=== PATIENT | female | born 1985 | race Caucasian/White ===

== ENCOUNTER 2019-05-07 13:21 | Emergency (ER) | payer OTHER ==
[~2019-05-07] VITALS: Ht 165.1 cm; Wt 66.7 kg
[2019-05-07] MEDS ORDERED: TOPIRAMATE100 MG PO (13:40)
[2019-05-07] MEDS ORDERED: ONDANSETRON ODT8 MG PO (17:19)
[2019-05-07] MEDS ORDERED: NORCO 7.5-3251 EACH PO (17:19)
== END 2019-05-07 17:41 | disposition home or self-care (01) ==
LOC: ED 13:21
DX: N20.1 Calculus of ureter (principal); F17.200 Nicotine dependence, unspecified, uncomplicated; Z90.49 Acquired absence of other specified parts of digestive tract; Z79.899 Other long term (current) drug therapy
CPT/HCPCS: 74176; 76830; 76856; 80053; 81001; 84703; 85025; 96361; 96374; 96375; 96376; 99284-25; J1170; J1885; J2405; J7030

== ENCOUNTER 2019-11-28 23:57 | Observation (INO) | payer OTHER ==
[~2019-11-28] VITALS: Ht 165.1 cm; Wt 70.1 kg
[~2019-11-28 23:57] MED LIST: NORCO 7.5-3251 EACH PO; ONDANSETRON ODT8 MG PO; TOPIRAMATE100 MG PO
--- OUTSIDE RECORDS SUMMARY | 2019-11-29 | XMS ---
PreManage Notification: GOYO JOINER Security Adon Events No recent Security Events currently on file CRITERIA MET - PRICILLAP CARE PROVIDERS Hugh [facility]LLI[facility] Internal Medicine Current PHONE: Unknown CHADD ELLIOTT Primary Care Current PHONE: [phone] [place] has no Care Guidelines for this patient. Uziel VISIT COUNT (12 MO.) 2 KYLEIGH Aguilar TOTAL 2 NOTE: Visits indicate total known visits. ED/UCC VISIT TRACKING (12 MO.) 11/28/2019 23:57 KYLEIGH Aguilar OR TYPE: Emergency COMPLAINT: - ABDOMINAL PAIN 05/07/2019 13:22 KYLEIGH Aguilar OR TYPE: Emergency COMPLAINT: - POSSIBLE OVARIAN CYST DIAGNOSES: - Acquired absence of other specified parts of digestive tract - Calculus of ureter - Lower abdominal pain, unspecified - Other fci (current) drug therapy - Nicotine dependence, unspecified, uncomplicated INPATIENT VISIT TRACKING (12 MO.) No inpatient visits to display in this time frame [email or web address]
[2019-11-29] MEDS ORDERED: ULTRAM50 MG PO (00:21)
[2019-11-29] MEDS ORDERED: MOTRIN IB200 MG PO (13:48)
[2019-11-29] MEDS ORDERED: NORCO 7.5-3251 EACH PO (13:48)
--- NOTE | 2019-11-29 14:14 | HP ---
[facility] [address] [place], [place] [address] Signed ADMISSION DATE: 11/28/2019 REASON FOR ADMISSION: This 34-year-old white woman is unemployed due to "anxiety." She lives in [place] with "the father of my children." She presented to the emergency room at approximately midnight last night, having had pain beginning earlier in the day, vaguely related to the right lower abdomen. Previous to this in the past week or so, she had not been feeling well and thought she may have had the flu. She had no cough or rhinorrhea, just vague sense of unwellness. She was taking Tylenol for those symptoms. Evaluation by Dr. Anderson in the emergency room included findings of right lower abdominal tenderness and elevated white count of 22,000. A CT scan of the abdomen was performed confirming appendicitis. No sign of abscess or perforation. She is admitted for further evaluation and care. PAST MEDICAL HISTORY: Significant for tubal ligation. She has a history of ovarian cyst as well. She has also had laparoscopic cholecystectomy in [place], [place] a number of years ago. She does suffer episodic diarrhea likely related to that. MEDICATIONS: She does take home medication of tramadol (Ultram) 50 mg p.o. t.i.d. as needed for back pain and topiramate 100 mg daily. SOCIAL HISTORY: She lives in [place] with a man. She has had children. She does not work. She has anxiety. REVIEW OF SYSTEMS: She denies any shortness of breath or chest pain. Does feel somewhat thirsty. Abdominal pain is restricted to the right lower abdomen mostly at this time. She has no problems of extremities. She does have episodic diarrhea (likely related to cholecystectomy history). PHYSICAL EXAMINATION: GENERAL: Pleasant white woman, who does not look systemically toxic. VITAL SIGNS: Temperature is 98.3, pulse 77, respirations 16, and blood pressure 97/62. She has multiple facial piercings, variably dyed hair both dark and blonde. HEENT: Trachea is midline. She has no hoarseness. Mucous membranes are quite dry. CHEST: Clear. Electronically Signed By: DEVORA HAGEN MD 11/29/19 1414 PATIENT NAME: GOYO JOINER HISTORY AND PHYSICAL DATE OF : 85 REPORT #: [id number] PHYSICIAN: DEVORA HAGEN MD PCP: JUDY ARREAGA DO REPORT IS CONFIDENTIAL AND NOT TO BE RELEASED WITHOUT AUTHORIZATION [facility] [address] [place], [place] [address] Signed HEART: Regular without murmur. ABDOMEN: Somewhat obese, but nondistended. Rovsing sign is positive. There is tenderness at McBurney point. There were no tenderness elsewhere. EXTREMITIES: Show no clubbing, cyanosis, or edema. Sequential compression device stockings are in place. LABORATORY STUDIES: Show white count of 22.2, hematocrit 44.4, and platelets 217,000. Chem profile with potassium of 3.2, bicarb 18, and glucose 113. Liver enzymes normal. Globulin 3.6. Amylase 16. Beta-hCG is negative. IMAGING DATA: CT scan was reviewed in detail, quite obviously particularly in coronal view, has an obvious distended appendix, appears to have fecaliths within it. Other intraabdominal organs are normal. Interpretation included a periappendiceal stranding without free air or abscess or perforation. ASSESSMENT: The patient has clinical and radiographic evidence of acute nonperforated appendicitis. Discussed with the pathophysiology of this problem. PLAN: I would recommend appendectomy preferred by laparoscopic approach. The risks of bleeding, infection, need for open procedure and other unforeseen complications were reviewed in detail. She needs additional fluid resuscitation at this time. Medications of thus far included cefoxitin, Pepcid, and pain medication. We will plan to do this today once fully fluid resuscitated. MD ELIN Mathis/MODL /[id number] cc: DO Eduardo Wynn MD Electronically Signed By: DEVORA HAGEN MD 11/29/19 1414 PATIENT NAME: GOYO JOINER HISTORY AND PHYSICAL DATE OF : [birth year] REPORT #: [id number] PHYSICIAN: DEVORA HAGEN MD PCP: JUDY ARREAGA DO REPORT IS CONFIDENTIAL AND NOT TO BE RELEASED WITHOUT AUTHORIZATION [facility] [address] [facility] [place] [address] Signed Copies: JUDY ARREAGA SHELDON MD ~ Electronically Signed By: DEVORA HAGEN MD 11/29/19 1414 PATIENT NAME: GOYO JOINER HISTORY AND PHYSICAL DATE OF : 85 REPORT #: [id number] PHYSICIAN: DEVORA HAGEN MD PCP: JUDY ARREAGA DO REPORT IS CONFIDENTIAL AND NOT TO BE RELEASED WITHOUT AUTHORIZATION
--- NOTE | 2019-11-30 08:44 | OR ---
[facility] [address] [place], [place] [address] Signed DATE OF OPERATION: 11/29/2019 SURGEON: Devora Hagen MD PREOPERATIVE DIAGNOSIS: Acute appendicitis. POSTOPERATIVE DIAGNOSIS: Gangrenous nonperforated appendicitis. PROCEDURE: Laparoscopic appendectomy. ANESTHESIA: General endotracheal; John Ratna, [employer], and local 10 mL of 0.25% Marcaine with epinephrine. INDICATION: This 34-year-old white woman presented to the emergency room at approximately midnight with right lower abdominal pain. She had rather significant right-sided abdominal pain starting at 6 p.m. yesterday, which progressed to her presentation. Upon review, she has had vague feelings of abdominal discomfort and unwellness over the past few days leading up to her right-sided abdominal pain. A CT scan was performed, which showed clear evidence of appendicitis with no sign of abscess particularly. She is known to have an elevated white count, bicarb of 18. She has undergone fluid resuscitation, intravenous antibiotic administration and now ready to undergo appendectomy preferred by laparoscopic approach. The risks of bleeding, infection, need for other indicated procedures and so forth were all reviewed with her. She understands and wished to proceed. FINDINGS: There is some purulent material within the right pericolic gutter as well as the pelvis. Her adnexal structures were normal except for the uterus, which had a few small fibroids. The appendix was indeed markedly inflamed, indeed gangrenous, but without sign of perforation or formed abscess. The liver had fatty infiltration. Appendectomy was performed without problem. DESCRIPTION OF PROCEDURE: The patient was brought to the operating room, given a general endotracheal anesthetic. Preoperative antibiotic, cefoxitin had been given. After satisfactory general Electronically Signed By: DEVORA HAGEN MD 11/30/19 0844 PATIENT NAME: GOYO JOINER OPERATIVE REPORT DATE OF : [birth year] REPORT #: [id number] PHYSICIAN: DEVORA HAGEN MD PCP: JUDY ARREAGA DO REPORT IS CONFIDENTIAL AND NOT TO BE RELEASED WITHOUT AUTHORIZATION [facility] [address] [place], [place] [address] Signed endotracheal anesthesia with COVID-19 precautions (use of a glide scope) the abdomen was then prepared with a chlorhexidine solution and draped sterilely. The left arm was kept at the side. The infraumbilical incision was made and using an open Ran cannula technique pneumoperitoneum was achieved to a level of 14 mmHg of carbon dioxide gas. Intraabdominal inspection showed no sign of ascites or carcinomatosis. There was some purulent material in the right pericolic gutter as well as the pelvis. The liver had fatty infiltration, but no sign of cirrhotic changes. An additional 12 mm epigastric port was placed and a camera placed to that site. Single hand manipulation identified well the stiff and straight appearing appendix, which was markedly inflamed and probably with early gangrenous changes, but there was no sign of formed abscess or perforation proper. A right lower quadrant 5 mm port was placed with two-hand manipulation. The appendix was elevated and a window created between the appendix and the cecum. An Endo STEPHANIE stapling device was used to transect the appendix flushed with the cecum. The mesoappendix was then secured with an Endo STEPHANIE stapling device as well. Appendix was placed in an endobag and extracted through the infraumbilical port site, opened on the back table and found to show appendicitis as expected. Irrigation was undertaken in the pelvis in the right pericolic gutter, The staple line was evaluated and found to be generally hemostatic. Minimal electrocautery was applied to it. Trocars were then removed under direct visualization showing no sign of bleeding. The infraumbilical fascial incision was reapproximated with interrupted 0 Vicryl suture. 10 mL of 0.25% Marcaine with epinephrine was injected locally. Irrigation of the subcutaneous space was undertaken. The skin closed with interrupted 3-0 Vicryl. Steri-Strips were applied. The patient was ultimately extubated and transferred to the recovery room in good condition having suffered no complication. Sponge, needle, and instrument counts were reported as correct x3. Devora Hagen MD /MODL /[id number] cc: DO Eduardo Wynn MD Electronically Signed By: DEVORA HAGEN MD 11/30/19 0844 PATIENT NAME: GOYO JOINER OPERATIVE REPORT DATE OF : [birth year] REPORT #: [id number] PHYSICIAN: DEVORA HAGEN MD PCP: JUDY ARREAGA DO REPORT IS CONFIDENTIAL AND NOT TO BE RELEASED WITHOUT AUTHORIZATION [address] [address] Signed Copies: JUDY ARREAGA SHELDON MD ~ Electronically Signed By: DEVORA HAGEN MD 11/30/19 0844 PATIENT NAME: GOYO JOINER OPERATIVE REPORT DATE OF : [birth year] REPORT #: [id number] PHYSICIAN: DEVORA HAGEN MD PCP: JUDY ARREAGA DO REPORT IS CONFIDENTIAL AND NOT TO BE RELEASED WITHOUT AUTHORIZATION
--- NOTE | 2019-11-30 11:10 | PATH ---
[facility] [address] [place], [place] [address] Signed SPECIMEN(S): A APPENDIX SPECIMEN SOURCE: A. APPENDIX CLINICAL HISTORY: Evidence of non-perforated appendicitis. FINAL PATHOLOGIC DIAGNOSIS: Appendix, appendectomy: - Acute appendicitis with periappendicitis. NAL:caw:[id number] MICROSCOPIC EXAMINATION: Histologic sections of all submitted blocks are examined by light microscopy. These findings, together with the gross examination, support the pathologic diagnosis. GROSS DESCRIPTION: The specimen, labeled "SZ, appendix," is received in formalin and consists of Specimen: Appendix with mesoappendix. Dimensions: 6.5 x 1.4 cm. Serosa: Dull rodriguez with a nice exudate. Perforation: Not grossly identified. Inking: Staple line is inked black. Mucosa: Dark red. Fecalith: Not grossly identified. Additional: None. Felled Seam Operator sections are submitted in cassette (A1). SS (under the direct supervision of a pathologist) The Gross Description was prepared using a voice recognition system. The report was reviewed for accuracy; however, sound-alike word errors, addition and/or deletions may occur. If there is any question about this report, please contact Client Services. PERFORMING LABORATORY: The technical component was performed by [employer], [address] [place] [id number] (Pig Conveyor Operator: Genevieve Cowart MD; CLIA# [id number]). [facility] [address] [address] (CLIA# [id number]). PATIENT NAME: GOYO JOINER PATHOLOGY DATE OF : 85 REPORT #: [id number] PHYSICIAN: RAMIRO PATHOLOGY PCP: JUDY ARREAGA DO REPORT IS CONFIDENTIAL AND NOT TO BE RELEASED WITHOUT AUTHORIZATION [address] [place] [address] Signed Diagnostician: Kyra Acuna MD Pathologist Electronically Signed 11/30/2019 Copies: ~ PATIENT NAME: GOYO JOINER PATHOLOGY DATE OF : [birth year] REPORT #: [id number] PHYSICIAN: RAMIRO PATHOLOGY PCP: JUDY ARREAGA DO REPORT IS CONFIDENTIAL AND NOT TO BE RELEASED WITHOUT AUTHORIZATION
== END 2019-11-29 16:40 | disposition home or self-care (01) ==
LOC: ED 23:57 → MS 23:58
PROVIDERS: ADMIT Surgery
PROC: 0DTJ4ZZ Resection of Appendix, Percutaneous Endoscopic Approach (ICD-10-PCS; principal; 2019-11-28)
DX: K35.80 Unspecified acute appendicitis (principal); K76.0 Fatty (change of) liver, not elsewhere classified; F17.210 Nicotine dependence, cigarettes, uncomplicated; Z79.899 Other long term (current) drug therapy
CPT/HCPCS: 00840; 74177; 80053; 81001; 83690; 84703; 85025; 96361; 96372; 96375; 96376; 99285-25; 99406; A9270; G0378; J0694; J1100; J1170; J1644; J1885; J2001; J2405; J2704; J3010; J7030; J7121; Q9967